=== PATIENT | female | born 1940 | race Caucasian/White ===

== ENCOUNTER → 2017-07-16 | Outpatient (CLI) | payer MEDICARE ==
[~2017-07-16] MED LIST: ALBU90OI61 INH; Cipro500 MG PO; FAMO10 PO; FERR325 PO; FLUSAL2505 INH; Flagyl500 MG PO; LEVSOD50 PO; LOSARTAN-HCTZ1 EAC2 PO; MAGN84 PO; METO50ER PO; Multi-Day Vita1 EACH PO; NATURAL PSYLL1044 GM PO; POLY500 PO; PRESERVISION L1 EACH PO; VITAMIN D32000 UNIT PO; Voltaren100 GM TP; XARELTO20 MG PO
== END | disposition home or self-care (01) ==
LOC: PLD 11:34 → LAB SHORT 11:34
DX: D22.5 Melanocytic nevi of trunk (principal)
CPT/HCPCS: 88305

== ENCOUNTER → 2018-05-28 | Outpatient (CLI) | payer MEDICARE | END | disposition home or self-care (01) | LOC: PLD 11:24 → LAB SHORT 11:24 | DX: D22.5 Melanocytic nevi of trunk (principal) | CPT/HCPCS: 88305 ==

== ENCOUNTER 2021-08-23 06:20 | Day surgery (SDC) | payer MEDICARE ==
[~2021-08-23] VITALS: Ht 162.6 cm; Wt 85.3 kg
[2021-08-23] MEDS ORDERED: Voltaren100 GM TOP (06:39)
[2021-08-23] MEDS ORDERED: CLEM1.34 (06:39)
--- NOTE | 2021-08-23 06:47 | NUR ---
08/23/21 0647 Leonel Conway CALL [facility] WITHIN REACH. TETRACAINE DROPS AT 0639 PLEDGETT AT 0642
== END 2021-08-23 08:11 | disposition home or self-care (01) ==
LOC: ORSCSDS 06:20
PROVIDERS: Ophthalmology
PROC: 08RJ3JZ Replacement of Right Lens with Synthetic Substitute, Percutaneous Approach (ICD-10-PCS; principal; 2021-08-23 07:30)
DX: H25.13 Age-related nuclear cataract, bilateral (principal); I48.91 Unspecified atrial fibrillation; I10 Essential (primary) hypertension; E03.9 Hypothyroidism, unspecified; G47.33 Obstructive sleep apnea (adult) (pediatric); E66.9 Obesity, unspecified; Z68.32 Body mass index [BMI] 32.0-32.9, adult; Z87.891 Personal history of nicotine dependence; Z79.899 Other long term (current) drug therapy
CPT/HCPCS: J2001; J2250; J3010; J3301; J7040; V2632

== ENCOUNTER 2021-09-13 06:14 | Day surgery (SDC) | payer MEDICARE ==
[~2021-09-13] VITALS: Ht 167.6 cm; Wt 85.9 kg
[~2021-09-13 06:14] MED LIST changes: +CLEM1.34; +Voltaren100 GM TOP
--- NOTE | 2021-09-13 06:48 | NUR ---
09/13/21 0648 Tabitha Salazar [facility]-0630 [facility]-0636
== END 2021-09-13 08:03 | disposition home or self-care (01) ==
LOC: ORSCSDS 06:14
PROVIDERS: Ophthalmology
PROC: 08RK3JZ Replacement of Left Lens with Synthetic Substitute, Percutaneous Approach (ICD-10-PCS; principal; 2021-09-13 07:30)
DX: H25.12 Age-related nuclear cataract, left eye (principal); Z87.891 Personal history of nicotine dependence; I10 Essential (primary) hypertension; E05.90 Thyrotoxicosis, unspecified without thyrotoxic crisis or storm; G47.30 Sleep apnea, unspecified; I48.91 Unspecified atrial fibrillation; Z79.899 Other long term (current) drug therapy
CPT/HCPCS: J2001; J2250; J3010; J3301; J7040; J7120; V2632

== ENCOUNTER → 2022-04-26 | Outpatient (CLI) | payer MEDICARE | END | disposition home or self-care (01) | LOC: LAB SHORT 12:03 → LAB 12:03 | DX: N39.0 Urinary tract infection, site not specified (principal) | CPT/HCPCS: 87086 ==